=== PATIENT | female | born 1990 | race African-American/Black ===

== ENCOUNTER 2023-12-07 02:11 | Emergency (ER) | payer MEDICAID ==
[~2023-12-07] VITALS: Ht 165.1 cm; Wt 69.0 kg
[2023-12-07 02:30] VITALS: O2SAT 100
[2023-12-07] MEDS ORDERED: ASPIRIN 81MG TABLET PO ONE (04:00)
[2023-12-07] MEDS ORDERED: NITROGLYCERIN 0.4MG TABLET SL SL PRN (04:00)
[2023-12-07 04:16] LABS: BASOPHILS % 0.8 % (0.0-2.0); EOSINOPHILS % 0.6 % (0.0-5.0); HEMATOCRIT. 38.6 % (36.0-48.0); HEMOGLOBIN. 12.9 g/dL (12.0-16.0); LYMPHOCYTES % 27.2 % (20.0-50.0); MEAN CORPUSCULAR HEMOGLOBIN 29.9 pg (28.0-32.0); MEAN CORPUSCULAR HGB CONC 33.5 g/dL (31.0-37.0); MEAN CORPUSCULAR VOLUME 89.2 fL (81.0-99.0); MEAN PLATELET VOLUME 8.9 fl (7.4-10.4); MONOCYTES % 5.7 % (2.0-8.0); NEUTROPHILS % 65.7 % (40.0-76.0); PLATELET 186 x1000/uL (130-400); RED BLOOD CELL COUNT 4.33 mill/uL (4.2-5.4); RED CELL DISTRIBUTION WIDTH 13.9 % (11.6-14.6); WHITE BLOOD COUNT 8.6 x1000/uL (4.5-11.0)
[2023-12-07 04:31] LABS: CHLORIDE 109 mEq/L (98-107); POTASSIUM 3.6 mEq/L (3.5-5.1); SODIUM 141 mEq/L (136-145)
[2023-12-07 04:32] LABS: CALCIUM 9.5 mg/dL (8.7-10.4); CARBON DIOXIDE 26 mEq/L (21-32)
[2023-12-07 04:37] LABS: CREATININE 0.8 mg/dL (0.6-1.0); GLUCOSE 95 mg/dL (70-105); UREA NITROGEN BLOOD 10 mg/dL (9-23)
[2023-12-07 04:39] LABS: ACETAMINOPHEN < 2 ug/mL (10-30); ALANINE AMINOTRANSFERASE 10 IU/L (10-49); ALBUMIN 4.3 g/dL (3.2-4.8); ASPARTATE AMINOTRANSFERASE 12 IU/L (<34)
[2023-12-07 04:40] LABS: BILIRUBIN TOTAL 0.9 mg/dL (0.1-1.0); PROTEIN TOTAL 6.8 g/dL (6.0-8.3)
[2023-12-07 04:48] LABS: D-DIMER 1.78 mg/L FEU (<0.50); PARTIAL THROMBOPLASTIN TIME 28.2 sec (23.4-31.0); PROTHROMBIN TIME 11.1 sec (9.6-11.0)
[2023-12-07 05:01] LABS: HCG SCREEN NEGATIVE
[2023-12-07 05:25] LABS: ETHANOL BLOOD < 10 mg/dL (<10); TROPONIN I HIGH SENSITIVITY < 4 ng/L (3.0-34)
[2023-12-07] MEDS: IOHEXOL-350 100 ML BOTTLE ONE (06:43)
[2023-12-07 07:00] VITALS: BP 114/79; PULSE 62; RESP 18; TEMP 97.5; O2SAT 100
[2023-12-07] MEDS ORDERED: IOHEXOL-350 100 ML BOTTLE ONE (16:21)
== END 2023-12-07 07:13 | disposition home or self-care (01) ==
LOC: ER 02:11
DX: R07.9 Chest pain, unspecified (principal); F31.9 Bipolar disorder, unspecified
CPT/HCPCS: 80053; 80307; 80329; 80320; 84703; 83880; 85025; 85379; 85610; 85730; 84484; 36415; 71045; 71275; 93005; 99285; Q9967; Z7610; G0480